=== PATIENT | female | born 1980 | race Native Hawaiian/Other Pacific Islander ===

== ENCOUNTER 2018-07-15 08:25 | Outpatient (CLI) | payer OTHER | END 2018-07-15 23:00 | disposition home or self-care (01) | LOC: MAMMO 08:25 | DX: Z12.31 Encounter for screening mammogram for malignant neoplasm of breast (principal) ==

== ENCOUNTER 2022-09-08 23:34 | Emergency (ER) | payer OTHER ==
[~2022-09-08] VITALS: Ht 152.4 cm; Wt 81.6 kg
[2022-09-09 00:34] LABS: POTASSIUM 3.8 mmol/L (3.6-5.2); SODIUM 139 mmol/L (136-145)
[2022-09-09 00:58] LABS: PLATELET COUNT 312 K/uL (152-353)
[2022-09-09 10:56] VITALS: BP 123/85; TEMP 98.2
== END 2022-09-09 10:56 | disposition other institution (70) ==
LOC: ED 23:34
PROVIDERS: Family Medicine
DX: F33.8 Other recurrent depressive disorders (principal); R45.851 Suicidal ideations; F15.10 Other stimulant abuse, uncomplicated; Z11.52 Encounter for screening for COVID-19
CPT/HCPCS: 36415; 80053; 80143; 80179; 80307; 80320; 81000; 85027; 87635; 93005; 99285; U0003